=== PATIENT | female | born 1960 | race Caucasian/White ===

== ENCOUNTER → 2023-04-04 08:45 | Outpatient (BNVA) | payer MEDICARE, SELFPAY | PROVIDERS: PCP Family Medicine; Referring Provider Family Medicine; Visit Provider Student in an Organized Health Care Education/Training Program | DX: M70.61 Trochanteric bursitis, right hip (principal); M76.31 Iliotibial band syndrome, right leg | CPT/HCPCS: 99204 ==

== ENCOUNTER → 2023-04-13 07:51 | Outpatient (BNVA) | payer MEDICARE, SELFPAY | PROVIDERS: PCP Family Medicine; Referring Provider Family Medicine; Visit Provider Student in an Organized Health Care Education/Training Program ==

== ENCOUNTER 2023-04-14 05:58 | Day surgery (SDC) | payer MEDICARE, SELFPAY ==
[2023-04-14] VITALS (10 sets, daily range): BP systolic 90–123; BP diastolic 53–76; PULSE 56–76; RESP 14–20; TEMP 36.3–36.7; O2SAT 94–99; BMI 31.4
--- NOTE | 2023-04-14 06:14 | W.ANESPRE ---
General Info Date of Service Date Performed: 04/14/23 Height: 5 ft 5 in Weight: 85.729 kg Body Mass Index (BMI): 31.4 Surgical Procedure: Operation Date: 04/14/23 07:50 Proposed Procedure Side Surgeon p Endoscopic Iliotibial Band Release w/ Trochanteric Bursectomy Right Emre Moser MD Meds Allergies and Home Medications Allergies Allergy/AdvReac Type Severity Reaction Status Date / Time bee venom protein (honey bee) Allergy Unknown Other (See Verified 04/14/23 06:15 Comment) Home Medication Medication Instructions Recorded ascorbate calcium (vitamin C) 500 500 mg PO DAILY 03/09/23 mg tablet cholecalciferol (vitamin D3) 325 325 mcg PO QWEEK 03/09/23 mcg (13,000 unit) capsule flurbiprofen 100 mg tablet 100 mg PO TID 03/09/23 hydrocodone 7.5 mg-acetaminophen 1 tab PO Q8H PRN 03/09/23 325 mg tablet multivitamin 1 tab PO DAILY 03/09/23 omega 4-cit-vby-fish oil 60 mg-90 1 cap PO DAILY 03/09/23 mg-500 mg capsule (Fish Oil) pyridoxine (vitamin B6) 250 mg 250 mg PO DAILY 03/09/23 tablet thiamine HCl (vitamin B1) 100 mg 100 mg PO DAILY 03/09/23 tablet vitamin E (dl, acetate) 450 mg 450 mg PO DAILY 03/09/23 (1,000 unit) capsule aspirin 81 mg tablet,delayed 81 mg PO DAILY 04/12/23 release calcium 500 mg tablet 1,000 mg PO DAILY 04/14/23 magnesium 100 mg capsule 100 mg PO DAILY 04/14/23 Current Visit Medications: Current Medications Generic Name Dose Route Start Last Admin Trade Name Freq PRN Reason Stop Dose Admin Ringer's Solution 1,000 mls @ 30 mls/hr 04/13/23 06:00 IV 05/12/23 23:59 INFUSION CHARLES Cefazolin Sodium/Dextrose 2 gm in 50 mls @ 100 mls/hr 04/13/23 06:00 Ancef Duplex IVPB 05/12/23 23:59 PREOP CHARLES IV Miscellaneous Supplies 1 each 04/13/23 06:00 Iv Access IV 05/12/23 23:59 DIRECTED CHARLES Sodium Chloride 0 ml 04/13/23 06:00 Normal Saline Flush 10 Ml Syr IV 05/12/23 23:59 PRN PRN Sodium Chloride 0 ml 04/13/23 06:00 Normal Saline 10 Ml Vial IJ 05/12/23 23:59 DIRECTED PRN Sterile Water 0 ml 04/13/23 06:00 Water,Injection,Sterile 10 Ml Vial IJ 05/12/23 23:59 DIRECTED PRN PFSH Active Problems Active Problems: Problem Status Onset Code Right hip pain M25.551 Greater trochanteric bursitis of right hip M70.61 NSAID long-term use Z79.1 Anxiety F41.9 Chronic left shoulder pain M25.512, G89.29 Bee sting allergy Z91.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 Trochanteric bursitis of right hip M70.61 Iliotibial band syndrome of right side M76.31 Medical History Medical History (Updated 04/14/23 @ 07:12 by Emre Moser MD) Chronic otitis media Greater trochanteric bursitis of right hip History of varicella Right hip pain Surgical History Surgical History (Updated 04/14/23 @ 06:15 by Lorenza Rubalcava) History of bilateral tubal ligation History of bowel resection History of carpal tunnel release of both wrists open History of ear surgery prosthetic ear drum History of partial hysterectomy Hx of colonoscopy Hx of shoulder surgery x3 Tobacco Smoking/Tobacco Use Status: Former Tobacco Use Alcohol Alcohol Intake: current Alcohol intake frequency: a few times a week Alcohol type: beer Substance Use Substance use: Never Substance use type: does not use Vital Signs and Lab Results Vital Signs Most Recent Vital Signs in EMR: Temp Pulse Resp BP Pulse Ox 36.5 C 64 15 118/71 97 04/14/23 06:36 04/14/23 06:36 04/14/23 06:36 04/14/23 06:36 04/14/23 06:36 Lab Results Blood Type / Crossmatch: No Data to Display Complete Blood Count: No Data to Display Complete Metabolic Panel: No Data to Display Liver Function Panel: No Data to Display Coagulation Panel: No Data to Display Cardiac Panel: No Data to Display Arterial Blood Gas: No Data to Display Venous Blood Gas: No Data to Display Pancreas Panel: No Data to Display Thyroid Panel: No Data to Display Infectious Disease: No Data to Display Blood Cultures: No Data to Display Toxicology Panel: No Data to Display Anesthesia Assessment and Plan Anesthesia History Personal History: No History of Anesthesia Complications Family History: No Family History of Anesthesia Complications Exercise Tolerance Exercise Tolerance: Metabolic Equivalents>4 Cardiac & Pulmonary Exam Cardiac Exam: Normal S1/S2 Heart Sounds Pulmonary Exam: Clear Bilateral Breath Sounds Implantable Cardiac Device Does patient have a Pacemaker or an ICD?: No Airway Exam Known Difficult Airway: No Mallampati Class: 4 Mouth Opening: Narrow (< 3cm) Thyromental Distance: Less than 3 cm Neck Range of Motion: Full ROM Neck Circumference: Normal Teeth Condition: Removable Dentures/Plates Upper and Removable Dentures/Plates Lower ASA Classification ASA Score: ASA 2 Emergency Case?: No NPO Status NPO Status: NPO Clears >2 hours, Solids >8 hours Anesthesia Plan Resuscitation Status: Full Code Anesthesia Technique: General Anesthesia Airway Planned: Endotracheal Tube Monitors Used: Standard Monitors Preoperative Comments:: 63 yo female with IT band syndrome for hip scope. Sig PMHx: Anxiety, former smoker, occ EtOH. denies major.
[2023-04-14] MEDS: Lactated Ringers 1,000 ML 30 ML IV (06:55)
--- NOTE | 2023-04-14 07:00 | DI.RAD_ITS ---
Exam(s) XR HIP RT IN OR EXAM: XR HIP RT IN OR CLINICAL HISTORY: IT BAND SYNDROME RIGHT HIP TECHNIQUE: 2D and realtime digital imaging was performed. CONTRAST MATERIAL: Refer to procedure report. COMPARISON: CR Hip Right 2 Views w/ Pelvis from 08/01/2022 MR MRI Lower Ext Joint RT w/oCont from 01/31/2023 FINDINGS: Fluoroscopy was provided for Dr. Moser during the performance of a right IT band release. Please re ama to the procedure report for complete details. Ka,r=0.65 mGy IMPRESSION: RADIATION DOSE DELIVERED:
--- NOTE | 2023-04-14 07:11 | ROE_ITS ---
Date of service: 04/14/23 Time of Service: 07:30 Operative Note Operative Note DATE OF PROCEDURE: 04/14/23 PRE-OP DIAGNOSIS: Right hip 1. Iliotibial band syndrome 2. Trochanteric bursitis POST-OP DIAGNOSIS: same PROCEDURE: Right hip endoscopic 1. Iiliotibial band release, CPT# 67873 2. Trochanteric bursectomy, CPT# 05633 SURGEON: Emre Moser ANESTHESIA TYPE: Local By Surgeon and General LMA/ETT Refer to Anesthesia Record ESTIMATED BLOOD LOSS: 5 Patient was transported to: PACU Patient's condition: stable Indications: Please see complete medical record for details. Findings: Thickened, taught iliotibial band. Inflamed trochanteric bursitis. No significant gluteal tendon tearing. Procedure Description: In the operating room, general anesthesia was induced. The patient was positioned supine on the [place] operating room table. All bony prominences were well-padded. Preoperative antibiotics were administered. The hip was prepped and draped in the usual sterile fashion. The correct patient, procedure, and side of the procedure were all verified prior to incision. 30 cc of 0.25% bupivacaine containing epinephrine was infiltrated about the subcutaneous tissues for the planned anterior lateral and distal anterolateral portals as well as deeply over the greater trochanter. A knife was used to incise the skin for the anterior lateral and distal anterolateral portals followed by blunt dissection subcutaneously. Under fluoroscopic guidance, a switching stick and arthroscope were inserted localizing the iliotibial band over the greater trochanter. Blunt dissection and the mechanical shaver were used to resect fat and overlying tissue about the center of the iliotibial band and carefully expose the anterior and posterior margins. Once there was adequate exposure of the IT band, the greater trochanter was again localized under fluoroscopic guidance with a spinal needle inserted through the skin down to bone. This central area was marked using the radiofrequency ablator. A [place] blade was brought in and used to create a 2 cm longitudinal incision in line with the IT band fibers as well as extending it in a cruciate fashion with 2 cm incisions anteriorly and posteriorly. The radiofrequency ablator was used to achieve hemostasis. The mechanical shaver was then used to debride the IT band released edges, extending the release through taut tissue especially posteriorly, fully exposing the trochanteric bursa. The mechanical shaver was then used to excise the trochanteric bursa taking care to protect musculature about the margins of the greater trochanter as well as neurovascular structures especially posteriorly. There was excellent visualization of the vastus lateralis as well as gluteus medius confirming appropriate bursa excision. The hip was brought through range of motion including internal and external rotation and there was no impinging iliotibial band tissue or remaining pathologic bursa. The viewing and working portals were switched and appropriate IT band release, trochanteric bursa excision, and hemostasis confirmed. Suction was used to remove fluid from the endoscopic space. The portals were closed using 3-0 Monocryl in a buried fashion. Steri-Strips were applied over the incisions followed by Xeroform, 4 x 4 gauze, an ABD pad, and secured with tape. The patient awoke from anesthesia without complication and was transferred to the recovery room in a stable condition.
--- NOTE | 2023-04-14 07:11 | W.PM.DSUDISC ---
Date of service: 04/14/23 Time of Service: 11:00 Discharge Plan Disposition Patient Disposition: Home Condition: Stable Discharge Details Attending Provider: Emre Moser Primary Care Provider: Tylor Gilliam Home Meds and New Rx's Prescriptions: New naproxen 250 mg tablet 250 - 500 mg PO BID PRNQty: 40 0RF Rx Instructions: take with a meal Continued vitamin E (dl, acetate) 450 mg (1,000 unit) capsule 450 mg PO DAILY ascorbate calcium (vitamin C) 500 mg tablet 500 mg PO DAILY multivitamin Tablet 1 tab PO DAILY pyridoxine (vitamin B6) 250 mg tablet 250 mg PO DAILY thiamine HCl (vitamin B1) 100 mg tablet 100 mg PO DAILY cholecalciferol (vitamin D3) 325 mcg (13,000 unit) capsule 325 mcg PO QWEEK omega 4-dqg-cad-fish oil [Fish Oil] 60-90-500 mg capsule 1 cap PO DAILY hydrocodone-acetaminophen 7.5-325 mg tablet 1 tab PO Q8H PRN aspirin 81 mg Tablet,Delayed Release (Dr/Ec) 81 mg PO DAILY calcium 500 mg Tablet 1,000 mg PO DAILY magnesium 100 mg Capsule 100 mg PO DAILY Discontinued flurbiprofen 100 mg tablet 100 mg PO TID Discharge Instructions Additional Instructions: Surgery: Right hip endoscopy with iliotibial band release and trochanteric bursectomy Activity: Weightbearing as tolerated. May use crutches or walker as needed for a few days. Gradually advance to full range of motion and activity over the next few weeks. A physical therapy prescription will be provided separately in the office at follow up if needed. Prescriptions: Resume Aspirin 81 mg daily tomorrow morning May use home Vicodin prescription 7.5mg- 325mg (hydrocodone-acetaminophen) take 1 every 4-8 hours as needed for moderate to severe pain (prescribed for shoulder pain by PMD, shared decision made to avoid additional narcotic prescription after this surgery as pain medication requirement should be low and this medication works well for her) Naproxen 250 mg take 1-2 every 12 hours with a meal as needed for moderate pain (do not use at same time as Flurbiprofen or other NSAIDs) You may use [id number] Tylenol (acetaminophen) as needed for mild pain (but not at same time as Vicodin). Also, recommend Colace (docusate) as a stool softener as surgery and pain medicine cause constipation. Dressings: Leave dressing in place for 3 days. May then remove and leave open to air or cover incisions with Band-Aids. Leave the sticky Steri-Strips in place until they fall off or remove them after you shower. May shower after 5 days. Follow-up: 10-[address] Moser You may take off the leg compression stockings this evening at home. You may also leave them on a few days longer if you have a history of leg swelling or edema. Let us know right away if you develop any redness, drainage, fevers, chest pain, or trouble breathing. Do not drink alcohol or drive for at least 24 hours after anesthesia. Please call the office during business hours with any questions or concerns. Discharge Orders Discharge Orders: Discharge Order (Routine); Ordered 04/14/23 Ordered By: Emre Moser DS: Diagnosis Discharge Diagnosis (1) Trochanteric bursitis of right hip: Status: Acute (2) Iliotibial band syndrome of right side: Status: Acute
[2023-04-14] MEDS: ceFAZolin 2 GM/50 ML BAG IVPB (07:32)
[2023-04-14] MEDS: Bupivacaine 0.25% Pres-Free W/EPI 30 ML VIAL IM (08:15)
[2023-04-14] MEDS: EPINEPHrine 30 MG/30 ML VIAL (08:15)
[2023-04-14] MEDS: HYDROmorphone 2 MG/ML SYR IVP ×2 (09:13→09:25)
[2023-04-14] MEDS: Normal Saline 10 ML VIAL IJ (09:13)
--- NOTE | 2023-04-14 09:26 | W.ANESPOSTOP ---
Postoperative Evaluation Date, Time and Location Date Performed: 04/14/23 Time Performed: : Patient Location: PACU Vital Signs Most Recent Imported Vital Signs: Most Recent Vital Signs Temp Pulse Resp BP Pulse Ox 36.4 C L 56 L 15 103/68 94 04/14/23 09:22 04/14/23 09:22 04/14/23 09:22 04/14/23 09:22 04/14/23 09:22 Pain Score Most Recent Pain Score: Most Recent Pain Score Pain Level 7 04/14/23 09:22 Assessment Mental Status: Awake (Alert & Oriented to Patient Baseline) Airway and Respiratory Function: Patent airway with normal (patient baseline) respiratory exam Cardiovascular Function: Hemodynamically Stable Hydration Status: Adequately Hydrated Nausea & Vomiting: No Nausea or Vomiting Pain: Pain is Moderate or Severe Postoperative Pain Management: Pain being addressed with medication Peripheral Nerve Block: Patient did not receive a nerve block
== END 2023-04-14 11:50 | disposition home or self-care (01) ==
PROVIDERS: PCP Family Medicine; Visit Provider Student in an Organized Health Care Education/Training Program
PROC: (CPT 29863; principal; 2023-04-14 07:30)
DX: M70.61 Trochanteric bursitis, right hip (principal); M76.31 Iliotibial band syndrome, right leg
CPT/HCPCS: 27062; 27305; 73501; J0131; J0690; J1100; J1170; J1885; J2250; J2405; J2704; J3475

== ENCOUNTER → 2023-04-26 13:59 | Outpatient (BNVA) | payer MEDICARE, SELFPAY | PROVIDERS: PCP Family Medicine; Referring Provider Family Medicine; Visit Provider Student in an Organized Health Care Education/Training Program | DX: Z47.89 Encounter for other orthopedic aftercare (principal); M70.61 Trochanteric bursitis, right hip; M76.31 Iliotibial band syndrome, right leg ==